=== PATIENT | female | born 1960 | race African-American/Black ===

== ENCOUNTER 2020-01-14 12:42 | Inpatient (IN) | payer MEDICAID, OTHER ==
[~2020-01-14] VITALS: Ht 160 cm; Wt 75.8 kg
[2020-01-14 14:34] LABS: BASOPHILS % 0.8 % (0.0-2.0); EOSINOPHILS % 1.2 % (0.0-5.0); HEMATOCRIT. 41.2 % (36.0-48.0); HEMOGLOBIN. 13.8 g/dL (12.0-16.0); LYMPHOCYTES % 27.9 % (20.0-50.0); MEAN CORPUSCULAR HEMOGLOBIN 30.9 pg (28.0-32.0); MEAN CORPUSCULAR VOLUME 91.9 fL (81.0-99.0); MEAN PLATELET VOLUME 10.6 fl (7.4-10.4); MONOCYTES % 4.4 % (2.0-8.0); NEUTROPHILS % 65.7 % (40.0-76.0); PLATELET 231 x1000/uL (130-400); RED BLOOD CELL COUNT 4.48 mill/uL (4.2-5.4); RED CELL DISTRIBUTION WIDTH 13.1 % (11.6-14.6)
[2020-01-14 14:40] LABS: CHLORIDE 104 mEq/L (98-107)
[2020-01-14] MEDS ORDERED: SODIUM CHLORIDE 0.9% 500 ML IV ONE (18:30)
[2020-01-14] MEDS ORDERED: ASPIRIN 81MG TABLET PO ONE (19:15)
[2020-01-14] MEDS ORDERED: DEXTROSE 50% WATER 50ML SYRINGE IV PRN (21:00)
[2020-01-14] MEDS ORDERED: TRAZODONE HCL 50MG TABLET PO PRN (21:00)
[2020-01-14] MEDS ORDERED: ONDANSETRON HCL 4MG/2ML INJ IV PRN (21:00)
[2020-01-14] MEDS: BLOOD SUGAR DIAGNOSTIC STRIP TEST SCH (21:20)
[2020-01-14] MEDS: HEPARIN 5000 UNITS/ML VIAL SUBCUT SCH (21:30)
[2020-01-14] MEDS: INSULIN LISPRO 100 UNITS/ML SUBCUT SCH (21:30)
[2020-01-14 23:35] VITALS: BP 104/84
[2020-01-14 23:40] VITALS: BP 104/84
[2020-01-15] MEDS ORDERED: AMLO10TA80 PO (00:24)
[2020-01-15] MEDS ORDERED: BENA40TA9 PO (00:24)
[2020-01-15 04:00] VITALS: BP 125/68
[2020-01-15] MEDS: ACETAMINOPHEN 325MG TABLET PO PRN (04:24)
[2020-01-15 05:33] LABS: *AMPHETAMINES SCREEN URINE NEGATIVE (NEGATIVE); *BARBITURATES SCREEN URINE NEGATIVE (NEGATIVE); *BENZODIAZEPINES SCREEN URINE NEGATIVE (NEGATIVE); *COCAINE SCREEN URINE NEGATIVE (NEGATIVE)
[2020-01-15 05:35] LABS: CANNABINOID URINE SCREEN PRESUMTIVE POSITIVE (NEGATIVE); METHADONE URINE SCREEN NEGATIVE (NEGATIVE); OPIATES URINE SCREEN NEGATIVE (NEGATIVE); PHENCYCLIDINE URINE SCREEN NEGATIVE (NEGATIVE)
[2020-01-15] MEDS: BLOOD SUGAR DIAGNOSTIC STRIP TEST SCH ×4 (06:28→21:00)
[2020-01-15] MEDS: INSULIN LISPRO 100 UNITS/ML SUBCUT SCH ×4 (06:28→22:17)
[2020-01-15 07:02] LABS: BASOPHILS % 0.4 % (0.0-2.0); CHLORIDE 103 mEq/L (98-107); EOSINOPHILS % 2.2 % (0.0-5.0); HEMATOCRIT. 39.7 % (36.0-48.0); HEMOGLOBIN. 13.4 g/dL (12.0-16.0); LYMPHOCYTES % 32.8 % (20.0-50.0); MEAN CORPUSCULAR HEMOGLOBIN 30.9 pg (28.0-32.0); MEAN CORPUSCULAR VOLUME 91.6 fL (81.0-99.0); MEAN PLATELET VOLUME 10.4 fl (7.4-10.4); MONOCYTES % 4.4 % (2.0-8.0); NEUTROPHILS % 60.2 % (40.0-76.0); PLATELET 212 x1000/uL (130-400); RED BLOOD CELL COUNT 4.34 mill/uL (4.2-5.4); RED CELL DISTRIBUTION WIDTH 13.4 % (11.6-14.6)
[2020-01-15 07:28] LABS: LDL CHOLESTEROL 90 mg/dL (5-100)
[2020-01-15 07:31] LABS: HDL CHOLESTEROL 30 mg/dL (40-59)
[2020-01-15 08:00] VITALS: BP 132/62
[2020-01-15] MEDS: HEPARIN 5000 UNITS/ML VIAL SUBCUT SCH ×2 (08:37→22:17)
[2020-01-15 12:00] VITALS: BP 134/81
[2020-01-15] MEDS ORDERED: PNEUMOCOCCAL 23-VAL P-SAC VAC 0.5 ML IM ONE (12:00)
[2020-01-15] MEDS ORDERED: POTASSIUM CHLORIDE 20MEQ TABLET SR PO NR (13:00)
[2020-01-15] MEDS: ASPIRIN 81MG TABLET PO SCH (13:07)
[2020-01-15] MEDS: CLOPIDOGREL 75MG TABLET PO SCH (13:08)
[2020-01-15] MEDS ORDERED: MAGNESIUM 2 G PREMIX 50 ML IV NR (14:00)
[2020-01-15] MEDS: INSULIN GLARGINE UD 100 UNITS/ML SYR SUBCUT SCH (14:31)
[2020-01-15 16:00] VITALS: BP 129/46
[2020-01-15] MEDS: SODIUM CHLORIDE 0.9% 1,000 ML IV SCH (17:31)
[2020-01-15 20:00] VITALS: BP 141/68
[2020-01-16] VITALS: BP 145/78
[2020-01-16] MEDS: ACETAMINOPHEN 325MG TABLET PO PRN ×3 (02:41→22:56)
[2020-01-16 04:00] VITALS: BP 157/58
[2020-01-16] MEDS: BLOOD SUGAR DIAGNOSTIC STRIP TEST SCH ×4 (06:09→20:59)
[2020-01-16] MEDS: INSULIN LISPRO 100 UNITS/ML SUBCUT SCH ×4 (06:11→21:02)
[2020-01-16 06:17] LABS: CHLORIDE 105 mEq/L (98-107)
[2020-01-16 06:21] LABS: BASOPHILS % 0.7 % (0.0-2.0); HEMATOCRIT. 38.9 % (36.0-48.0); LYMPHOCYTES % 43.1 % (20.0-50.0); MEAN CORPUSCULAR VOLUME 92.8 fL (81.0-99.0); MEAN PLATELET VOLUME 10.7 fl (7.4-10.4); MONOCYTES % 5.4 % (2.0-8.0); NEUTROPHILS % 47.8 % (40.0-76.0); PLATELET 211 x1000/uL (130-400); RED BLOOD CELL COUNT 4.19 mill/uL (4.2-5.4); RED CELL DISTRIBUTION WIDTH 13.2 % (11.6-14.6)
[2020-01-16 08:00] VITALS: BP 145/73
[2020-01-16] MEDS: CLOPIDOGREL 75MG TABLET PO SCH (08:54)
[2020-01-16] MEDS: ASPIRIN 81MG TABLET PO SCH (08:54)
[2020-01-16] MEDS: HEPARIN 5000 UNITS/ML VIAL SUBCUT SCH ×2 (08:54→21:01)
[2020-01-16] MEDS: SODIUM CHLORIDE 0.9% 1,000 ML IV SCH (10:10)
[2020-01-16] MEDS: INSULIN GLARGINE UD 100 UNITS/ML SYR SUBCUT SCH (10:10)
[2020-01-16 12:00] VITALS: BP 146/68
[2020-01-16] MEDS: AMLODIPINE 5MG TABLET PO SCH (12:58)
[2020-01-16] MEDS ORDERED: MAGNESIUM 2 G PREMIX 50 ML IV NR (14:00)
[2020-01-16 16:00] VITALS: BP 151/75
[2020-01-16 20:00] VITALS: BP 158/74
[2020-01-16] MEDS ORDERED: ATORVASTATIN CALCIUM 40MG TABLET PO SCH (21:00)
[2020-01-16] MEDS ORDERED: IOHEXOL-350 100 ML BOTTLE ONE (22:50)
[2020-01-17] VITALS: BP 143/80
[2020-01-17 04:00] VITALS: BP 149/79
[2020-01-17] MEDS: SODIUM CHLORIDE 0.9% 1,000 ML IV SCH (06:00)
[2020-01-17] MEDS: BLOOD SUGAR DIAGNOSTIC STRIP TEST SCH ×2 (06:07→12:24)
[2020-01-17] MEDS: INSULIN LISPRO 100 UNITS/ML SUBCUT SCH ×2 (06:17→12:24)
[2020-01-17 07:24] LABS: CHLORIDE 107 mEq/L (98-107)
[2020-01-17 07:34] LABS: BASOPHILS % 0.8 % (0.0-2.0); HEMATOCRIT. 39.2 % (36.0-48.0); HEMOGLOBIN. 13.1 g/dL (12.0-16.0); LYMPHOCYTES % 39.9 % (20.0-50.0); MEAN CORPUSCULAR HEMOGLOBIN 30.8 pg (28.0-32.0); MEAN CORPUSCULAR VOLUME 92.2 fL (81.0-99.0); MEAN PLATELET VOLUME 10.2 fl (7.4-10.4); MONOCYTES % 4.5 % (2.0-8.0); NEUTROPHILS % 49.8 % (40.0-76.0); PLATELET 208 x1000/uL (130-400); RED BLOOD CELL COUNT 4.25 mill/uL (4.2-5.4); RED CELL DISTRIBUTION WIDTH 13.1 % (11.6-14.6)
[2020-01-17 08:19] VITALS: BP 129/64
[2020-01-17] MEDS: HEPARIN 5000 UNITS/ML VIAL SUBCUT SCH (08:21)
[2020-01-17] MEDS: AMLODIPINE 5MG TABLET PO SCH (08:21)
[2020-01-17] MEDS: CLOPIDOGREL 75MG TABLET PO SCH (08:21)
[2020-01-17] MEDS: ASPIRIN 81MG TABLET PO SCH (08:21)
[2020-01-17] MEDS ORDERED: INSULIN GLARGINE UD 100 UNITS/ML SYR SUBCUT SCH (10:00)
[2020-01-17] MEDS ORDERED: ASPI-1160 PO (12:35)
[2020-01-17] MEDS ORDERED: LANTUSUD SUBCUT (12:35)
[2020-01-17] MEDS ORDERED: LIP40 PO (12:35)
[2020-01-17] MEDS ORDERED: CLOP75TA15 PO (12:35)
[2020-01-17] MEDS ORDERED: LOSA50TA41 MT (12:35)
[2020-01-17] MEDS ORDERED: AMLO5TAB88 PO (12:37)
[2020-01-17 13:55] VITALS: BP 150/66
[2020-01-19 19:06] LABS: ANTI-MYELOPEROXIDASE AB < 9.0 U/mL (0.0-9.0); ANTI-PROTEINASE 3 ABS < 3.5 U/mL (0.0-3.5)
[2020-01-20 15:10] LABS: ATYPICAL P-ANCA <1:20 titer (Neg:<1:20); CYTOPLASMIC C-ANCA <1:20 titer (Neg:<1:20); PERINUCLEAR P-ANCA <1:20 titer (Neg:<1:20)
[2020-01-21 09:10] LABS: ANA IFA Negative (.)
== END 2020-01-17 16:10 | disposition home or self-care (01) | DRG 45 ==
LOC: ER 12:42 → 5WST 20:50 → EDBEDREQTM 20:51 → EDBEDREQ 20:51 → ENRESERV 22:03
PROVIDERS: ADMIT Internal Medicine; ATTEND Internal Medicine
DX: I63.9 Cerebral infarction, unspecified (principal); E11.65 Type 2 diabetes mellitus with hyperglycemia; E78.5 Hyperlipidemia, unspecified; E83.42 Hypomagnesemia; E87.6 Hypokalemia; I10 Essential (primary) hypertension; E78.1 Pure hyperglyceridemia; F12.10 Cannabis abuse, uncomplicated; Z91.19 Patient's noncompliance with other medical treatment and regimen; Z79.4 Long term (current) use of insulin; Z79.899 Other long term (current) drug therapy; Z88.8 Allergy status to other drugs, medicaments and biological substances
CPT/HCPCS: 36415; 70496; 70544; 70547; 70553; 80053; 80061; 80305; 82962; 83036; 83520; 83735; 83880; 84484; 85025; 85651; 86256; 90732; 93005; 93306; 93880; 97162; 97165; 99285; J1644; J1815; J3475; J7030; Q9967

== ENCOUNTER 2020-03-02 20:01 | Inpatient (IN) | payer SELFPAY ==
[~2020-03-02] VITALS: Ht 160 cm; Wt 81.2 kg
[~2020-03-02 20:01] MED LIST: AMLO5TAB88 PO; ASPI-1160 PO; CLOP75TA15 PO; LANTUSUD SUBCUT; LIP40 PO; LOSA50TA41 MT
[2020-03-02] MEDS ORDERED: ASPIRIN 81MG TABLET PO ONE (23:45)
[2020-03-03] LABS: BASOPHILS % 0.7 % (0.0-2.0); EOSINOPHILS % 3.1 % (0.0-5.0); HEMATOCRIT. 37.2 % (36.0-48.0); HEMOGLOBIN. 12.2 g/dL (12.0-16.0); LYMPHOCYTES % 28.9 % (20.0-50.0); MEAN CORPUSCULAR HEMOGLOBIN 30.4 pg (28.0-32.0); MEAN CORPUSCULAR VOLUME 92.3 fL (81.0-99.0); MEAN PLATELET VOLUME 9.3 fl (7.4-10.4); MONOCYTES % 5.5 % (2.0-8.0); NEUTROPHILS % 61.8 % (40.0-76.0); PLATELET 318 x1000/uL (130-400); RED BLOOD CELL COUNT 4.03 mill/uL (4.2-5.4)
[2020-03-03 00:05] LABS: CHLORIDE 102 mEq/L (98-107)
[2020-03-03 00:12] LABS: D-DIMER 0.21 mg/L FEU (<0.50); PROTHROMBIN TIME 10.6 sec (9.6-11.0)
[2020-03-03] MEDS ORDERED: ACETAMINOPHEN 325MG TABLET PO PRN (02:15)
[2020-03-03] MEDS ORDERED: ONDANSETRON HCL 4MG/2ML INJ IV PRN (02:15)
[2020-03-03] MEDS ORDERED: DEXTROSE 50% WATER 50ML SYRINGE IV PRN (02:15)
[2020-03-03] MEDS ORDERED: TRAZODONE HCL 50MG TABLET PO PRN (02:15)
[2020-03-03 04:00] VITALS: BP 151/59
[2020-03-03 04:52] LABS: *AMPHETAMINES SCREEN URINE NEGATIVE (NEGATIVE); *BARBITURATES SCREEN URINE NEGATIVE (NEGATIVE); *BENZODIAZEPINES SCREEN URINE NEGATIVE (NEGATIVE); *COCAINE SCREEN URINE NEGATIVE (NEGATIVE); CANNABINOID URINE SCREEN NEGATIVE (NEGATIVE); OPIATES URINE SCREEN NEGATIVE (NEGATIVE)
[2020-03-03 04:53] LABS: METHADONE URINE SCREEN NEGATIVE (NEGATIVE); PHENCYCLIDINE URINE SCREEN NEGATIVE (NEGATIVE)
[2020-03-03] MEDS: BLOOD SUGAR DIAGNOSTIC STRIP TEST SCH ×3 (05:54→17:20)
[2020-03-03] MEDS: INSULIN LISPRO 100 UNITS/ML SUBCUT SCH ×3 (06:15→17:15)
[2020-03-03 08:00] VITALS: BP 103/54
[2020-03-03] MEDS ORDERED: HEPARIN 5000 UNITS/ML VIAL SUBCUT SCH (09:00)
[2020-03-03] MEDS ORDERED: AMLODIPINE 10MG TABLET PO SCH (11:00)
[2020-03-03] MEDS ORDERED: ASPIRIN 81MG EC TABLET PO SCH (11:15)
[2020-03-03] MEDS ORDERED: CLOPIDOGREL 75MG TABLET PO SCH (11:15)
[2020-03-03 12:00] VITALS: BP 90/54
[2020-03-03] MEDS ORDERED: INSULIN GLARGINE UD 100 UNITS/ML SYR SUBCUT SCH ×2 (15:00)
[2020-03-03 16:00] VITALS: BP 134/70
[2020-03-03 16:38] VITALS: BP 134/70
[2020-03-03] MEDS ORDERED: ATORVASTATIN CALCIUM 40MG TABLET PO SCH (21:00)
== END 2020-03-03 17:30 | disposition home or self-care (01) | DRG 207 ==
LOC: ER 20:01 → 5WST 03-03 02:02 → ENRESERV 03-03 03:20
PROVIDERS: ADMIT Internal Medicine; ATTEND Internal Medicine
DX: R00.2 Palpitations (principal); E11.9 Type 2 diabetes mellitus without complications; I10 Essential (primary) hypertension; R00.1 Bradycardia, unspecified; E87.1 Hypo-osmolality and hyponatremia; Z86.73 Personal history of transient ischemic attack (TIA), and cerebral infarction without residual deficits; Z79.899 Other long term (current) drug therapy
CPT/HCPCS: 36415; 71045; 80053; 80305; 82962; 83036; 83880; 84484; 85025; 85379; 93005; 93306; 96372; 99285; J1644; J1815